=== PATIENT | male | born 1965 | race Asian ===

== ENCOUNTER 2017-09-08 18:14 | Emergency (ER) | payer SELFPAY ==
[~2017-09-08] VITALS: Wt 73.8 kg
[~2017-09-08 18:14] MED LIST: PIOG15TA12 PO
== END 2017-09-08 23:45 | disposition left against medical advice (07) ==
LOC: FTE 18:14
DX: Z53.21 Procedure and treatment not carried out due to patient leaving prior to being seen by health care provider (principal)